=== PATIENT | male | born 1990 | race Asian ===

== ENCOUNTER 2016-11-27 12:06 | Inpatient (IN) | payer OTHER ==
[~2016-11-27] VITALS: Ht 180.3 cm; Wt 113.4 kg
[2016-11-27 12:10] VITALS: BP 141/94; TEMP 98.1
[2016-11-27 13:08] LABS: PLATELET COUNT 321 K/uL (142-355)
[2016-11-27 13:13] LABS: POTASSIUM 3.8 mmol/L (3.6-5.2); SODIUM 136 mmol/L (136-145)
[2016-11-27 14:30] VITALS: BP 143/93
[2016-11-27 20:00] VITALS: BP 120/84; TEMP 98.3
[2016-11-27 20:59] VITALS: BP 122/74; TEMP 103.1; Ht 180.3 cm; Wt 113.4 kg
[2016-11-28] VITALS: BP 108/51; TEMP 99.9
[2016-11-28 04:00] VITALS: BP 131/77; TEMP 103.2
[2016-11-28 04:46] LABS: PLATELET COUNT 294 K/uL (142-355)
[2016-11-28 05:50] LABS: POTASSIUM 3.4 mmol/L (3.6-5.2); SODIUM 137 mmol/L (136-145)
[2016-11-28 07:59] VITALS: BP 96/37; TEMP 100.5
--- NOTE | 2016-11-28 08:10 | NUR ---
PATIENT TAKEN TO OR VIA WHEELCHAIR
[2016-11-28 12:00] VITALS: BP 103/53; TEMP 98.9
[2016-11-28 16:00] VITALS: BP 122/75; TEMP 99.4
[2016-11-28 20:00] VITALS: BP 140/89; TEMP 98.7
[2016-11-29] VITALS (7 sets, daily range): BP systolic 118–136; BP diastolic 63–88; TEMP 98–99
[2016-11-29 06:09] LABS: POTASSIUM 3.9 mmol/L (3.6-5.2); SODIUM 138 mmol/L (136-145)
[2016-11-29 06:13] LABS: PLATELET COUNT 272 K/uL (142-355)
--- NOTE | 2016-11-29 14:54 | NUR ---
7949 DR KRISHNA HERE IN ROOM AT THIS TIME. DIET CHAGED TO REG DIET. IVF'S HL'D AT THIS TIME. NO OTHER PROBELMS NOTED. WILL CON'T TO MONIOTR.
[2016-11-30 04:00] VITALS: BP 128/74; TEMP 98.5
[2016-11-30 07:20] LABS: PLATELET COUNT 305 K/uL (142-355)
[2016-11-30 07:47] LABS: POTASSIUM 3.1 mmol/L (3.6-5.2); SODIUM 135 mmol/L (136-145)
[2016-11-30 08:00] VITALS: BP 141/88; TEMP 100
[2016-11-30 12:00] VITALS: BP 134/86; TEMP 99.1
[2016-11-30 16:00] VITALS: BP 140/85; TEMP 98.7
--- NOTE | 2016-11-30 19:25 | NUR ---
1715 DR KRISHNA HERE AT THIS TIME. RG DRAIN EMPTIED 5ML OF SEROUS-SANG FLUID EMPTIED AT THIS TIME. RG DRAIN REMOVED PER DR KRISHNA. 4X4 APPLIED. PT TOLERATED WELL. DISCHARGE INSTRUCTIONS GIVEN AND EXPLIANED TO FAMILY AND PT PER MD. BOTH VERBLAIZED UNDERSTANDING. MOTHER INSTRUCTERD TO CALL FOR POST OP FU IN AM FOR 10 DAYS,
[2016-11-30 20:00] VITALS: BP 134/85; TEMP 99.4
[2016-11-30 22:00] VITALS: BP 134/85; TEMP 99.4
--- NOTE | 2016-12-01 07:17 | NUR ---
11/30/16 AT 2115 IV D/C'D CATHETER INTACT, PRESSURE AND BANDAID APPLIED. PT. TOLERATED WELL. PATIENT AND HIS MOTHER GIVEN WRITTEN AND VERBAL DC ORDERS, VERBALIZES UNDERSTANDING OF ALL INSTRUCTIONS GIVEN AND DENIES ANY QUESTIONS AT THIS TIME. PT. D/C'D VIA WHEELCHAIR HOME WITH HIS MOTHER.
== END 2016-11-30 21:30 | disposition home or self-care (01) | DRG 340 ==
LOC: ED 12:06 → MED/SURG 16:01
PROVIDERS: ADMIT Family Medicine
PROC: 0DTJ4ZZ Resection of Appendix, Percutaneous Endoscopic Approach (ICD-10-PCS; principal; 2016-11-28)
DX: K35.3 Acute appendicitis with localized peritonitis (principal)
CPT/HCPCS: 36415; 80053; 81000; 83605; 83735; 84153; 85027; 87088; 94760; 96360; 96365; 96366; 96367; 96375; 99284; C1729; J0132; J0330; J1100; J1170; J1644; J1885; J2001; J2250; J2270; J2405; J2543; J2704; J2710; J2765; J3010; J3490; S0028